=== PATIENT | male | born 1970 | race Caucasian/White ===

== ENCOUNTER 2021-10-11 11:29 | Outpatient (CLI) | payer OTHER, SELFPAY ==
[2021-10-11 11:49] LABS: Basophils Absolute Auto 0.07 K/mm3 (0.00-0.10); Basophils Percent Auto 1.2 % (0.0-1.0); Eosinophils Absolute Auto 0.33 K/mm3 (0.02-0.50); Eosinophils Percent Auto 5.5 % (1.0-6.0); Hematocrit 47.8 % (40.0-54.0); Hemoglobin 16.4 g/dL (14.0-18.0); Immature Granulocyte Absolute 0.01 K/mm3 (0.00-0.00); Immature Granulocyte Percent A 0.2 % (0.0-0.0); Lymphocytes Absolute Auto 2.16 K/mm3 (1.10-4.50); Lymphocytes Percent Auto 36.2 % (18.0-42.0); Mean Corpuscular HGB Conc 34.3 g/dL (32.0-36.0); Mean Corpuscular Hemoglobin 30.4 pg (27.0-31.0); Mean Corpuscular Volume 88.7 fL (78.0-102.0); Mean Platelet Volume 9.8 fl (8.7-11.0); Monocytes Absolute Auto 0.54 K/mm3 (0.10-0.90); Neutrophils Absolute Auto 2.9 K/mm3 (1.7-7.2); Neutrophils Percent Auto 47.9 % (50.0-70.0); Platelet Count Result 181 K/mm3 (150-420); Red Blood Count 5.39 M/mm3 (4.70-6.10); Red Cell Distribution Width 12.9 % (11.6-14.4)
[2021-10-11 12:25] LABS: Alanine Aminotransferase 69 U/L (16-63); Albumin Level 3.7 g/dL (3.4-5.0); Alkaline Phosphatase 50 U/L (46-116); Anion Gap 6 mmol/L (8-16); Aspartate Amino Transferase 38 U/L (15-37); Bilirubin,Total 0.5 mg/dL (0.00-1.00); Blood Urea Nitrogen 14 mg/dL (7-18); Calcium 8.5 mg/dL (8.5-10.1); Carbon Dioxide 27 mmol/L (21-32); Chloride 107 mmol/L (98-108); Cholesterol 171 mg/dL (0-200); Estimated Glomerular Filt Rate > 60; Glucose 109 mg/dL (70-99); HDL Direct 40 mg/dL (40-60); LDL Cholesterol Calculated 101 mg/dL (<130); Osmolality Calculated 291 mOsm/kg (285-295); Potassium 4.2 mmol/L (3.5-5.1); Prostate Specific Antigen 0.7 ng/mL (< OR = 4.0); Sodium 140 mmol/L (136-145); Thyroid Stimulating Hormone 2.15 uIU/mL (0.36-3.74); Total Protein 6.9 g/dL (6.4-8.2); Triglycerides 149 mg/dL (0-150)
[2021-10-15 10:57] LABS: Hepatitis A Antibody IgM Nonreactive; Hepatitis B Core Antibody Nonreactive (Nonreactive); Hepatitis B Surface Antigen Nonreactive (Nonreactive); Hepatitis C Signal to Cutoff 0.06 ratio (<1.00); Hepatitis C Virus Antibody Nonreactive (Nonreactive)
== END 2021-10-11 11:30 | disposition home or self-care (01) ==
LOC: CHSLAB 11:35
PROVIDERS: PCP Internal Medicine; Visit Provider Internal Medicine
DX: Z00.00 Encounter for general adult medical examination without abnormal findings (principal); R51.9 Headache, unspecified; Z12.5 Encounter for screening for malignant neoplasm of prostate; R94.5 Abnormal results of liver function studies
CPT/HCPCS: 36415; 80053; 80061; 80074; 84153; 84443; 85025; G0103

== ENCOUNTER 2021-10-12 12:54 | Outpatient (NON) | payer OTHER, SELFPAY ==
[2021-10-12 13:20] LABS: Add Urine Microscopic? YES; Appearance Urine Clear (Clear); Bilirubin Urine Negative (Negative); Blood Urine Negative (Negative); Color Urine Light Yellow (Yellow); Glucose Urine UA 1+ (Negative); Ketones Urine Negative (Negative); Leukocyte Esterase Ur Negative (Negative); Nitrate Urine Negative (Negative); Protein Urine Negative (Negative); Specific Grav Ur 1.025 (1.010-1.020)
[2021-10-12 13:24] LABS: Bacteria Urine Trace /hpf; RBC Urine 0-2 /hpf (0-2); WBC Urine 0-3 /hpf (0-3)
== END 2021-10-12 12:55 | disposition home or self-care (01) ==
LOC: CHSLAB 13:02
PROVIDERS: Visit Provider Internal Medicine
DX: Z00.00 Encounter for general adult medical examination without abnormal findings (principal); R51.9 Headache, unspecified
CPT/HCPCS: 81001

== ENCOUNTER 2021-10-16 23:32 | Emergency (ER) | payer OTHER, SELFPAY ==
--- NOTE | ~2021-10-16 | XR_ITS ---
EXAMINATION: XR hand LT min 3V INDICATION: Left hand pain, initial encounter TECHNIQUE: Three views of the left hand are obtained. COMPARISON: None available FINDINGS: Bone alignment is normal. There is no fracture. There is a 3 mm radiopaque soft tissue fore ign body dorsal to the distal neck of the third proximal phalanx. Punctate radiopaque soft tissue for eign bodies are seen dorsal to the distal neck of the fourth metacarpal. There is a 2 mm linear radio paque foreign body projecting in the medial soft tissues adjacent to neck of the third proximal phala nx. There is soft tissue swelling of the third through fifth fingers. No fracture is identified. The joint spaces are normal. IMPRESSION: 1. Radiopaque soft tissue foreign bodies of the third through fifth fingers as detailed above. Reviewed, dictated and finalized at location A.
[2021-10-16 23:42] VITALS: BP 140/90; PULSE 80; RESP 20; TEMP 36.6; O2SAT 99
[2021-10-16] MEDS: TETANUS,DIPHTHERIA,AC PERTUSSIS ADULT 0.5 ML (ADACEL) IM (23:48)
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
[2021-10-17] VITALS: BP 140/90; PULSE 70; RESP 18; TEMP 36.6; O2SAT 97
[2021-10-17] MEDS: NEOMYCIN/POLYMYXIN/BACITRACIN OINTMENT PACKET 2 PACKET (00:06)
--- NOTE | 2021-10-17 00:10 | PC.NURSE ---
NEOSPORIN & PETROLEUM DRESSING APPLIED WITH COBAN TO 3FINGERS
== END 2021-10-17 00:10 | disposition home or self-care (01) ==
PROVIDERS: Emergency Provider Emergency Medicine; PCP Internal Medicine
DX: S61.211A Laceration without foreign body of left index finger without damage to nail, initial encounter (principal); S61.213A Laceration without foreign body of left middle finger without damage to nail, initial encounter; S61.215A Laceration without foreign body of left ring finger without damage to nail, initial encounter; V89.2XXA Person injured in unspecified motor-vehicle accident, traffic, initial encounter
CPT/HCPCS: 73130; 90471; 90715; 99283

== ENCOUNTER 2021-12-12 16:50 | Emergency (ER) | payer OTHER, SELFPAY ==
[2021-12-12 17:00] VITALS: BP 116/80; PULSE 82; RESP 16; TEMP 36.6; O2SAT 98
[2021-12-12] MEDS: KETOROLAC (*BKC) 60 MG/2 ML VIAL IM (17:28)
[2021-12-12] MEDS: ORPHENADRINE CITRATE 100 MG TABLET.ER PO (17:28)
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
[2021-12-12 18:15] VITALS: BP 130/75; PULSE 58; RESP 16; TEMP 36.2; O2SAT 96
== END 2021-12-12 18:15 | disposition home or self-care (01) ==
PROVIDERS: Emergency Provider Emergency Medicine
DX: S39.012A Strain of muscle, fascia and tendon of lower back, initial encounter (principal); X50.9XXA Other and unspecified overexertion or strenuous movements or postures, initial encounter
CPT/HCPCS: 96372; 99283; A9270; J1885

== ENCOUNTER 2022-05-24 10:39 | Outpatient (CLI) | payer OTHER, SELFPAY ==
[2022-05-24 11:04] LABS: Hemoglobin A1C 5.6 % (<5.7)
[2022-05-24 11:28] LABS: Alanine Aminotransferase 38 U/L (16-63); Albumin Level 3.9 g/dL (3.4-5.0); Alkaline Phosphatase 48 U/L (46-116); Anion Gap 9 mmol/L (8-16); Aspartate Amino Transferase 26 U/L (15-37); Bilirubin,Total 1.1 mg/dL (0.00-1.00); Blood Urea Nitrogen 16 mg/dL (7-18); Carbon Dioxide 27 mmol/L (21-32); Chloride 104 mmol/L (98-108); Cholesterol 176 mg/dL (0-200); Estimated Glomerular Filt Rate 55; Glucose 101 mg/dL (70-99); HDL Direct 47 mg/dL (40-60); LDL Cholesterol Calculated 100 mg/dL (<130); Osmolality Calculated 291 mOsm/kg (285-295); Potassium 4.2 mmol/L (3.5-5.1); Sodium 140 mmol/L (136-145); Total Protein 6.8 g/dL (6.4-8.2); Triglycerides 145 mg/dL (0-150)
== END 2022-05-24 10:40 | disposition home or self-care (01) ==
PROVIDERS: PCP Internal Medicine; Visit Provider Internal Medicine
DX: Z00.00 Encounter for general adult medical examination without abnormal findings (principal)
CPT/HCPCS: 36415; 80053; 80061; 83036

== ENCOUNTER 2022-06-14 12:02 | Outpatient (CLI) | payer OTHER, SELFPAY ==
[2022-06-14 12:18] LABS: Basophils Absolute Auto 0.05 K/mm3 (0.00-0.10); Basophils Percent Auto 0.8 % (0.0-1.0); Eosinophils Absolute Auto 0.19 K/mm3 (0.02-0.50); Eosinophils Percent Auto 3.1 % (1.0-6.0); Hematocrit 46.6 % (40.0-54.0); Hemoglobin 15.7 g/dL (14.0-18.0); Immature Granulocyte Absolute 0.02 K/mm3 (0.00-0.00); Immature Granulocyte Percent A 0.3 % (0.0-0.0); Lymphocytes Absolute Auto 1.77 K/mm3 (1.10-4.50); Lymphocytes Percent Auto 29.3 % (18.0-42.0); Mean Corpuscular HGB Conc 33.7 g/dL (32.0-36.0); Mean Corpuscular Hemoglobin 29.8 pg (27.0-31.0); Mean Corpuscular Volume 88.4 fL (78.0-102.0); Mean Platelet Volume 9.7 fl (8.7-11.0); Monocytes Absolute Auto 0.47 K/mm3 (0.10-0.90); Monocytes Percent Auto 7.8 % (2.0-11.0); Neutrophils Absolute Auto 3.5 K/mm3 (1.7-7.2); Neutrophils Percent Auto 58.7 % (50.0-70.0); Platelet Count Result 179 K/mm3 (150-420); Red Blood Count 5.27 M/mm3 (4.70-6.10); Red Cell Distribution Width 12.5 % (11.6-14.4)
[2022-06-14 12:19] LABS: Appearance Urine Clear (Clear); Bilirubin Urine Negative (Negative); Blood Urine Negative (Negative); Color Urine Light Yellow (Yellow); Glucose Urine UA Negative (Negative); Ketones Urine Negative (Negative); Leukocyte Esterase Ur Negative (Negative); Nitrate Urine Negative (Negative); Protein Urine Negative (Negative); Specific Grav Ur 1.015 (1.010-1.020); Urobilinogen Urine 0.2 mg/dL (0.2-1.0); pH Urine 6.5 (5.0-8.0)
[2022-06-14 12:29] LABS: Add Urine Microscopic? NO
[2022-06-14 12:55] LABS: Alanine Aminotransferase 35 U/L (16-63); Albumin Level 3.7 g/dL (3.4-5.0); Alkaline Phosphatase 44 U/L (46-116); Anion Gap 6 mmol/L (8-16); Aspartate Amino Transferase 30 U/L (15-37); Bilirubin,Total 0.8 mg/dL (0.00-1.00); Blood Urea Nitrogen 17 mg/dL (7-18); Calcium 8.7 mg/dL (8.5-10.1); Carbon Dioxide 27 mmol/L (21-32); Chloride 105 mmol/L (98-108); Estimated Glomerular Filt Rate > 60; Glucose 103 mg/dL (70-99); Osmolality Calculated 287 mOsm/kg (285-295); Potassium 4.2 mmol/L (3.5-5.1); Sodium 138 mmol/L (136-145); Total Protein 6.5 g/dL (6.4-8.2)
== END 2022-06-14 12:03 | disposition home or self-care (01) ==
LOC: CHSLAB 12:05
PROVIDERS: PCP Internal Medicine; Visit Provider Internal Medicine
DX: R94.4 Abnormal results of kidney function studies (principal)
CPT/HCPCS: 36415; 80053; 81003; 85025

== ENCOUNTER 2022-08-23 09:41 | Emergency (ER) | payer OTHER, SELFPAY ==
[2022-08-23 09:41] VITALS: BP 161/88; PULSE 72; RESP 18; TEMP 36.5; O2SAT 98
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
[2022-08-23 10:49] VITALS: BP 125/61; PULSE 68; RESP 16; TEMP 36.6; O2SAT 100
== END 2022-08-23 10:50 | disposition home or self-care (01) ==
LOC: CHSED 10:28
PROVIDERS: Emergency Provider Internal Medicine Critical Care Medicine; PCP Internal Medicine
DX: M76.31 Iliotibial band syndrome, right leg (principal)
CPT/HCPCS: 99283

== ENCOUNTER 2022-08-28 10:37 | Outpatient (CLI) | payer OTHER, SELFPAY ==
--- NOTE | ~2022-08-28 | XR_ITS ---
EXAMINATION: XR lumbar spine 2-3V DATE: 08/28/2022 10:57 INDICATION: Low back pain TECHNIQUE: Anteroposterior and lateral views of the lumbar spine, and cone-down lateral view of the l umbosacral junction were obtained. COMPARISON: None. FINDINGS: Bone alignment is normal. There is no fracture. There is moderate loss of intervertebral di sc space height at L5-S1 and mild loss of disc space height at L4-5. Small degenerative osteophytes p roject from the anterior endplates of multiple vertebral bodies. There is mild to moderate facet join t osteoarthritis of the lower lumbar spine. IMPRESSION: 1. Mild to moderate lower lumbar spondylosis without acute findings. Reviewed, dictated and finalized at location B.
== END 2022-08-28 10:38 | disposition home or self-care (01) ==
LOC: CHSIMG 10:41
PROVIDERS: PCP Internal Medicine; Visit Provider Internal Medicine
DX: M54.50 Low back pain, unspecified (principal); M47.26 Other spondylosis with radiculopathy, lumbar region
CPT/HCPCS: 72100

== ENCOUNTER 2022-09-08 11:24 | Outpatient (CLI) | payer OTHER, SELFPAY ==
--- NOTE | ~2022-09-08 | XR_ITS ---
XR femur RT min 2V DATE: 09/08/2022 11:45 INDICATION: Right leg pain for 3 weeks. No known injury. TECHNIQUE: AP and lateral views of right femur COMPARISON: None FINDINGS: No fracture or dislocation, periosteal reaction or bone destruction. Normal alignment at th e right hip and knee joints. IMPRESSION: Negative Reviewed, dictated and finalized at location B. IMPRESSION: Negative
--- NOTE | ~2022-09-08 | XR_ITS ---
XR knee RT 3V DATE: 09/08/2022 11:45 INDICATION: Right leg pain for 3 weeks. No known injury. TECHNIQUE: AP, lateral, sunrise views COMPARISON: None FINDINGS: There is mild loss of height at the medial compartment joint space. No fracture or dislocat ion or joint effusion. No periosteal reaction or bone destruction. No radiopaque intra-articular loos e body or chondrocalcinosis. IMPRESSION: Mild loss of height of medial compartment joint space; otherwise negative Reviewed, dictated and finalized at location B. IMPRESSION: Mild loss of height of medial compartment joint space; otherwise ne gative
--- NOTE | ~2022-09-08 | XR_ITS ---
XR hip RT min 2V DATE: 09/08/2022 11:45 INDICATION: Right leg pain for 3 weeks. No known injury. TECHNIQUE: AP and lateral views COMPARISON: None FINDINGS: No fracture or dislocation, avascular necrosis or bone destruction. Right hip joint space i s well preserved. The pubic symphysis and sacroiliac joints are intact. Levoscoliosis of the lumbar spine. Degenerative disc disease at L5-S1. IMPRESSION: No significant abnormality of right hip Reviewed, dictated and finalized at location B.
== END 2022-09-08 11:25 | disposition home or self-care (01) ==
LOC: CHSIMG 11:25
PROVIDERS: PCP Internal Medicine; Visit Provider Internal Medicine
DX: M79.604 Pain in right leg (principal)
CPT/HCPCS: 73502; 73552; 73562

== ENCOUNTER 2022-09-28 06:48 | Outpatient (CLI) | payer OTHER, SELFPAY ==
--- NOTE | ~2022-09-28 | MR_ITS ---
EXAMINATION: MR lumbar spine wo con DATE: 09/28/2022 07:36 INDICATION: Right-sided back pain and radiculopathy TECHNIQUE: Magnetic resonance imaging (MRI) of the lumbar spine was performed without intravenous con trast. Sequences included sagittal T2-weighted FSE, sagittal T2-weighted FS FSE, sagittal T1-weighted FSE, and axial T2-weighted FSE. COMPARISON: Lumbar spine radiographs dated 08/28/2022 FINDINGS: 11 degree lumbar levoscoliosis. Sagittal alignment is normal. Vertebral body heights are normal. Smal l Schmorl's nodes along the inferior endplate of T12 and endplates on either side of the T11-T12 disc space. T1 and T2 hyperintense hemangioma at T12. Bone marrow signal is otherwise normal. Mild disc h eight loss at T11-T12, L2-L3 and L3-L4 and mild to moderate disc height loss at L4-L5 and L5-S1. The conus medullaris terminates at L1. There is normal signal in the caudal spinal cord. Paravertebral so ft tissues are unremarkable. The following disc levels are specifically discussed: T12-L1: The disc does not extend beyond the endplate margin. There is no facet joint osteoarthritis. There is no neural foraminal stenosis. There is no central canal stenosis. L1-L2: Disc is moderately bulging with superimposed annular fissure and small central disc extrusion with disc material extending 2 mm caudal to the level of the superior endplate of L2. There is mild b ilateral facet joint osteoarthritis. There is mild bilateral neural foraminal stenosis. There is mild central canal stenosis. L2-L3: Bilateral small foraminal zone disc protrusions with additional annular fissure and right para central disc extrusion with disc material extending 2 mm caudal to the level of the superior endplate of L3. There is mild bilateral facet joint osteoarthritis. There is mild bilateral neural foraminal stenosis. There is mild central canal stenosis along with narrowing of the lateral recesses, right gr eater than left. L3-L4: Moderate diffuse disc bulge with superimposed annular fissure and small left paracentral disc extrusion with disc material extending couple millimeter caudal to the level of the superior endplate of L4. There is mild left and mild to moderate right facet joint osteoarthritis. There is mild to mo derate bilateral neural foraminal stenosis. There is mild central canal stenosis and narrowing of the lateral recesses. L4-L5: Disc is bulging with annular fissure. Small posterior endplate osteophytes. There is mild bila teral facet joint osteoarthritis. There is moderate left and mild to moderate right neural foraminal stenosis. There is mild central canal stenosis and narrowing of the lateral recesses. L5-S1: Disc is bulging with annular fissure. Small posterior endplate osteophytes. There is mild righ t and mild to moderate left facet joint osteoarthritis. There is mild right and moderate left neural foraminal stenosis. There is mild central canal stenosis. IMPRESSION: 1. Mild to moderate lumbar spondylosis. Reviewed, dictated and finalized at location L.
== END 2022-09-28 06:49 | disposition home or self-care (01) ==
LOC: CHSIMG 06:52
PROVIDERS: PCP Internal Medicine; Visit Provider Internal Medicine
DX: M54.50 Low back pain, unspecified (principal); M79.604 Pain in right leg; M43.06 Spondylolysis, lumbar region
CPT/HCPCS: 72148

== ENCOUNTER 2022-10-10 08:42 | Outpatient (RCR) | payer OTHER, SELFPAY ==
--- NOTE | 2022-10-10 09:51 | PTOPEVAL1 ---
Assessment and note entered by Savannah Valadez DPT Evaluation Information Assessment Status Evaluation Diagnosis low back pain, R leg pain Onset 08/18/22 Subjective Information Patient reports he had R thigh cramping on August 18 while standing in the grocery store. He reports since then leg pain has decreased but low back pain has increased. He reports pain radiates down the R leg and will get tingling in the R salmon . 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 Patient reports that pain increases with standing for long periods of time, sitting for long periods of time and he reports he has not tried to lift much since. MRI shows moderate lumar spondylosis. Reported Pain Level Pain Score 3,2: Self Report Assessment PT Clinical Summary Patient is a 52 year old male who presents to PT with low back pain and radiating pain to R LE. Patient demonstrates decreased R LE strength, decreased R hamstring length and pain with lumbar ROM limiting his ability to stand for prolonged periods to complete house hold tasks, sit for prolonged periods and lfit objects at home. He would benefit from skilled PT to address impairments and return to PLOF. Plan of Care Interventions Electrical Stimulation,Gait Training,Hot Pack/Cold Pack,Manual Therapy,Mechanical Traction,Neuro Re- education,Patient/Caregiver Educati,Therapeutic Activities,Therapeutic Exercise PT Services Indicated Yes Treatment Frequency and 3x weekly for 12 weeks Duration These treatments will address the objective and functional deficits as defined above. The patient will be advanced safely and appropriately in order for the patient to progress towards his/her prior level of function. Additional exercises will be introduced and as well as a comprehensive home exercise program upon discharge, if needed, ?to ensure carryover of functional gains achieved in the clinic. This treatment plan has been reviewed and agreement upon by the patient.
--- NOTE | 2022-10-10 09:52 | PTOPEVAL1 ---
Assessment and note entered by Savannah Valadez DPT Evaluation Information Assessment Status Evaluation Diagnosis low back pain, R leg pain Onset 08/18/22 Subjective Information Patient reports he had R thigh cramping on August 18 while standing in the grocery store. He reports since then leg pain has decreased but low back pain has increased. He reports pain radiates down the R leg and will get tingling in the R salmon . He reports he works in [employer] and has to lift up to 80# at work. Patient reports that pain increases with standing for long periods of time, sitting for long periods of time and he reports he has not tried to lift much since. MRI shows moderate lumar spondylosis. Reported Pain Level Pain Score 3,2: Self Report Assessment PT Clinical Summary Patient is a 52 year old male who presents to PT with low back pain and radiating pain to R LE. Patient demonstrates decreased R LE strength, decreased R hamstring length and pain with lumbar ROM limiting his ability to stand for prolonged periods to complete house hold tasks, sit for prolonged periods and lift objects at home. He would benefit from skilled PT to address impairments and return to PLOF. Plan of Care Interventions Electrical Stimulation,Gait Training,Hot Pack/Cold Pack,Manual Therapy,Mechanical Traction,Neuro Re- education,Patient/Caregiver Educati,Therapeutic Activities,Therapeutic Exercise PT Services Indicated Yes Treatment Frequency and 3x weekly for 12 weeks Duration These treatments will address the objective and functional deficits as defined above. The patient will be advanced safely and appropriately in order for the patient to progress towards his/her prior level of function. Additional exercises will be introduced and as well as a comprehensive home exercise program upon discharge, if needed, ?to ensure carryover of functional gains achieved in the clinic. This treatment plan has been reviewed and agreement upon by the patient.
--- NOTE | 2022-10-10 09:52 | OPREHPOC ---
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 Patient to score 20% improvement in Back Index 2. Patient to report ability to stand for >30 mintues with no radiating pain to R LE
--- NOTE | 2022-10-10 09:53 | OPREHPOC ---
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 Patient to score 20% improvement in Back Index 2. Patient to report ability to stand for >30 mintues with no radiating pain to R LE Target Visit 12
--- NOTE | 2022-11-01 11:46 | OPREHPOC ---
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 Patient to score 20% improvement in Back Index 2. Patient to report ability to stand for >30 mintues with no radiating pain to R LE Target Visit 12 Comment progressing towards
--- NOTE | 2022-11-01 11:47 | PTOPPROGNS ---
Assessment and note entered by JT File, PT Evaluation Information Assessment Status Progress Diagnosis low back pain, R leg pain Onset 08/18/22 Subjective Information patient reports he is better overall. he reports no symptoms in the R LE any longer, and lower pain overall in the lower back. he reports he has not yet returned to work. he reports he is compliant with his HEP at home. Assessment PT Clinical Summary mr. sun presents to skilled PT for his 10th skilled therapy visit today. he has made progress towards goals thus far noting decreased pain, independence with HEP, improvement of R hip strength, and reduction of R LE symptoms. he was educated today in exercises to improve his trunk and core stability and LE flexibility. he continues to have LE weakness, pain in the lower back, mm tightness, and has yet to return to prior level functional activities. he would benefit from continued skilled PT to address his remaining deficits to return to full prior level functional activity participation/performance. Plan of Care Interventions Electrical Stimulation,Gait Training,Hot Pack/Cold Pack,Manual Therapy,Mechanical Traction,Neuro Re- education,Patient/Caregiver Educati,Therapeutic Activities,Therapeutic Exercise PT Services Indicated Yes Treatment Frequency and continue skilled PT for 2 visits remaining on Duration initial POC These treatments will address the objective and functional deficits as defined above. The patient will be advanced safely and appropriately in order for the patient to progress towards his/her prior level of function. Additional exercises will be introduced and as well as a comprehensive home exercise program upon discharge, if needed, ?to ensure carryover of functional gains achieved in the clinic. This treatment plan has been reviewed and agreement upon by the patient.
--- NOTE | 2022-11-07 11:40 | OPREHPOC ---
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 Patient to score 20% improvement in Back Index 2. Patient to report ability to stand for >30 mintues with no radiating pain to R LE 3. Patient to demonstrate ability to box lift 50# with no increase in pain Target Visit 18 Comment progressing towards
--- NOTE | 2022-11-07 11:41 | PTOPREEVAL ---
Assessment and note entered by Savannah Valadez DPT Evaluation Information Assessment Status Re-evaluation Diagnosis low back pain, R leg pain Onset 08/18/22 Subjective Information Patient reports that salmon pain has resolved and thigh pain is very rare. He reports back pain is still there but it has also improved. He reports getting up out of chair and getting into bed have improved. he reports he has not attempted lifting anything over 20#. He thinks he would benefit from continued PT Reported Pain Level Pain Score 0,3: Self Report Assessment PT Clinical Summary Patient has attended 12 visits of skilled PT from 10/10/22-11/07/22 with great progress towards goals. Patient demonstrates 5/5 LE strength and independence with HEP but continues to have pain with lumbar ROM. Patient reports that radiating pain has mostly resolved but back pain is still presents. He has improved ability to stand up from chairs and get into bed but has difficulty with lifting activities. Patient would benefit from continued skilled PT to address remaining impairments and return to PLOF. Plan of Care Interventions Electrical Stimulation,Gait Training,Hot Pack/Cold Pack,Manual Therapy,Mechanical Traction,Neuro Re- education,Patient/Caregiver Educati,Therapeutic Activities,Therapeutic Exercise PT Services Indicated Yes Treatment Frequency and continue 2x weekly for 6 visits Duration These treatments will address the objective and functional deficits as defined above. The patient will be advanced safely and appropriately in order for the patient to progress towards his/her prior level of function. Additional exercises will be introduced and as well as a comprehensive home exercise program upon discharge, if needed, ?to ensure carryover of functional gains achieved in the clinic. This treatment plan has been reviewed and agreement upon by the patient.
--- NOTE | 2022-11-28 10:57 | OPREHPOC ---
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 PT Problem 4 PT Problem #4 Impaired Strength PT Goal 1 Goal Patient to demonstrate 5/5 strength of R LE to improve ability to stand for periods required to complete house hold tasks Target Visit 12 Progress Met Comment . PT Problem 5 PT Problem #5 Impaired Functional Mobil PT Goal 1 Goal 1. Patient to score 20% improvement in Back Index 2. Patient to report ability to stand for >30 mintues with no radiating pain to R LE 3. Patient to demonstrate ability to box lift 50# with no increase in pain Target Visit 18 Progress Met Comment .
--- NOTE | 2022-11-28 10:57 | PTOPDC ---
Assessment and note entered by Savannah Valadez DPT Evaluation Information Assessment Status Re-evaluation Diagnosis low back pain, R leg pain Onset 08/18/22 Subjective Information Patient reports he is feeling 95% better. He reports he still has some days where he can feel pain but only at a 1/10. He reports he believes he could return to work depending on the task for that day. Reported Pain Level Pain Score 0,1: Self Report Assessment PT Clinical Summary Mr. Sotomayor has been seen for 18 visits of skilled PT and has met all goals. Patient reports he is 95% improved and believes he is ready to return to work at this time. Patient has been able to tolerate lifting and carrying activities during PT session with no reports of pain. Patient is independent with HEP and is appropriate for DC at this time. Plan of Care PT Services Indicated No
== END 2022-11-28 15:21 | disposition home or self-care (01) ==
LOC: CHSPT 08:42
PROVIDERS: PCP Internal Medicine; Visit Provider Internal Medicine
DX: M51.16 Intervertebral disc disorders with radiculopathy, lumbar region (principal)
CPT/HCPCS: 97012; 97014; 97110; 97112; 97161; 97530; G0283

== ENCOUNTER 2024-05-20 08:50 | Emergency (ER) | payer OTHER, SELFPAY ==
--- NOTE | ~2024-05-20 | XR_ITS ---
XR lumbar spine 2-3V 05/20/2024 09:03 Indication: Low back pain Procedure: 3 views lumbar spine Comparison: 08/28/2022 Findings: There is disc narrowing at L2-3 through L5-S1. There is multilevel facet hypertrophy from L 3-4 through L5-S1. Pedicles intact. There is levoscoliosis centered at L3. Sacral foramen are symmetr ic. Impression: 1: Moderate lumbar spondylosis with levoscoliosis. Reviewed, dictated and finalized at location A. Impression: 1: Moderate lumbar spondylosis with levoscoliosis.
[2024-05-20 08:50] VITALS: BP 144/98; PULSE 73; RESP 18; TEMP 36.7; O2SAT 98
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
--- OUTSIDE RECORDS SUMMARY | 2024-05-20 09:09 | XMS_ITS | Encounter Summary ---
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
--- OUTSIDE RECORDS SUMMARY | 2024-05-20 09:09 | XMS_ITS | Clinical Summary ---
Author Organization [facility] Address [facility] [place] [address] Care Team Providers Care Rn Urology Name Role Phone None, Provider MD Primary Care Provider Unavaila ble Allergies Active Allergy Reactions Criticality Noted Date Comments Penicillins Other (see comment) 07/15/2020 Had a reaction as a baby. His mom says it almost killed him. Medications No known medications Social History Tobacco Use Types Packs/Day Years Used Date Smoking Tobacco: Former Smokeless Tobacco: Never Alcohol Use Standard Drinks/Week Comments Not Currently 0 (1 standard drink = 0.6 oz pur e alcohol) AUDIT-C Answer Date Recorded Q1: How often do you have a drink containing alc ohol? 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 Gender Identity Not on file Sexual Orientation Not on file Last Filed Vital Signs Vital Sign Reading Time Taken Comments Blood Pressure 140/88 05/04/2021 11:35 AM CDT Pulse 65 05/04/2021 11:35 AM CDT Temperature 36.4 C (97.6 F) 05/04/2021 11:35 AM CDT Respiratory Rate 18 05/04/2021 11:35 AM CDT Oxygen Saturation 96% 05/04/2021 11:35 AM CDT Inhaled Oxygen Concentration - - Weight 94.3 kg (208 lb) 05/04/2021 11:35 AM CDT Height 177.8 cm (5' 10 ) 05/04/2021 11:35 AM CDT Body Mass Index 29.84 05/04/2021 11:35 AM CDT Plan of Treatment Health Maintenance Due Date Last Done Comments Colorectal Cancer Screening Colonoscopy (10 Years) 1971 Annual Physical 09/07/1974 Hepatitis C 09/07/1989 DTaP, Tdap and Td Vaccines ( 1 - Tdap) 09/07/1990 Hepatitis B Vaccines (1 of 3 - 19+ 3-dose series) 09/07/1990 Zoster Vaccines (1 of 2) 09/07/2021 COVID-19 Vaccine (1 - 2023-2 5 season) 2023 Meningococcal B Vaccine Aged Out No l onger eligible based on patient's age to complete this topic Meningococcal Vaccine Aged Out No ingrid anais eligible based on patient's age to complete this topic Pneumococcal Vaccine: Pediat rics (0 to 5 Years) and At-Risk Patients (6 to 64 Years) Aged Out No longer eligible b ased on patient's age to complete this topic RSV Immunizations Under 20 Months Aged Out No longer eligible based on patient's age to complete this topic Insurance Care Teams Rn Urology Relationship Specialty Start Date End Date None, Provider, PCP - General 07/15/20
[2024-05-20] MEDS: KETOROLAC (*BKC) 60 MG/2 ML VIAL IM (09:30)
--- NOTE | 2024-05-20 10:18 | PC.NURSE ---
pt reports pain has improved at this time. he is aware of plan of care.
[2024-05-20 10:22] VITALS: BP 152/99; PULSE 65; RESP 18; TEMP 36.6; O2SAT 97
--- OUTSIDE RECORDS SUMMARY | 2024-05-20 10:28 | XMS_ITS | Encounter Summary ---
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
--- OUTSIDE RECORDS SUMMARY | 2024-05-20 10:28 | XMS_ITS | Clinical Summary ---
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
== END 2024-05-20 10:22 | disposition home or self-care (01) ==
PROVIDERS: Emergency Provider Emergency Medicine; PCP Internal Medicine
DX: M54.16 Radiculopathy, lumbar region (principal)
CPT/HCPCS: 72100; 96372; 99283; J1885

== ENCOUNTER 2024-06-21 10:18 | Outpatient (CLI) | payer OTHER, SELFPAY ==
--- NOTE | ~2024-06-21 | MR_ITS ---
MRI of the lumbar spine Clinical History: Back pain Technique: Axial T2-weighted images, and sagittal T1-weighted, T2-weighted, and T2 fat-sat images wer e acquired. COMPARISON: 09/28/2022 Findings: No fracture and 5. There is minimal grade 1 retrolisthesis of L2 over L3. No suspicious bon e marrow signal abnormality seen. At L1-L2, there is mild facet hypertrophy. No spinal canal stenosis or neuroforaminal narrowing. L2-L3, there is minimal disc bulge with mild facet arthropathy. No central canal stenosis or neural f oraminal narrowing. L3-L4, there is mild degenerative disc narrowing. There is no disc bulge or herniation. There is mode rate facet arthropathy. No central canal stenosis. There is bilateral neural foraminal narrowing. L4-L5, there is disc bulge and severe facet arthropathy. There is mild central canal stenosis. There is moderate left neural foraminal narrowing, and minimal right neural foraminal narrowing. At L5-S1, there is disc bulge and moderate facet arthropathy. No central canal stenosis. There is mil d left neural foraminal narrowing. Paravertebral soft tissues are unremarkable. IMPRESSION: Mild degenerative spondylosis overall, as above. Reviewed, dictated and finalized at location .
--- OUTSIDE RECORDS SUMMARY | 2024-06-21 16:19 | XMS_ITS | Clinical Summary ---
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
--- OUTSIDE RECORDS SUMMARY | 2024-06-21 16:19 | XMS_ITS | Encounter Summary ---
Author Organization [facility] Address [facility] [place] [address] Care Team Providers Care Precision Lens Grinder Apprentice Name Role Phone None, Provider Primary Care Provider Unavaila ble Encounter Details Date Type Department Care Team (Late st Contact Info) Description 07/27/2018 Abstract SFL CONVERSION [address] [place] [address] , Generic Conversion, Social History Tobacco Use Types Packs/Day Years Used Date Smoking Tobacco: Never Assessed Sex and Gender Information Value Date Recorded Sex Assigned at Not on file 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
== END 2024-06-21 10:19 | disposition home or self-care (01) ==
PROVIDERS: PCP Internal Medicine; Visit Provider Internal Medicine
DX: M54.50 Low back pain, unspecified (principal); M54.16 Radiculopathy, lumbar region; M43.06 Spondylolysis, lumbar region
CPT/HCPCS: 72148

== ENCOUNTER 2024-07-17 09:26 | Outpatient (RCR) | payer OTHER, BC, MEDICAID, SELFPAY ==
--- NOTE | 2024-07-17 13:18 | OPREHPOC ---
Outpatient Therapy Plan of Care This is a Multidisciplinary Plan of Care that may contain components documented by all disciplines (PT, OT, and ST.) PT Problem 1 PT Problem #1 Knowledge Deficit PT Goal 1 Goal / Goal Update Pt to be independent in HEP Target Visit 4 PT Problem 2 PT Problem #2 Impaired Functional Mobility PT Goal 1 Goal / Goal Update Pt to report that he is able to sit for at least an hour with no pain pt to be able to walk at least 1200 ft on 6MWT with reports of no more than a 2/10 pain. pt to report that he can drive with pain no more than 2/10. pt to be able to safely lift 30# from floor to waist with no more than a 2/10 pain Target Visit 12 PT Problem 3 PT Problem #3 Impaired Strength PT Goal 1 Goal / Goal Update Abdominal strength to be at least 4+/5 R hip flex to be at least a 4+/5 Target Visit 12 PT Problem 4 PT Problem #4 Impaired Range of Motion PT Goal 1 Goal / Goal Update pt to have at least 20 degrees of Lumbar extension Target Visit 12
--- NOTE | 2024-07-17 13:18 | PTOPEVAL1 ---
Assessment and note entered by Bronson Hess SPT Evaluation Information Assessment Status Evaluation ICD-10 Condition Codes (PT) Pain in low back M54.50,Radiculopathy, lumbar region M54.16 Onset 05/18/24 Subjective Information Pt reports that he has multiple bulging disc (L1- L5) that he got imagining of on 06/21/24. Pt reports that he has been dealing with low back pain and disc issues since 2022. 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 Pt reports that he has trouble walking, sitting longer than 10 min, and driving without an increase in pain. Pt reports that ice and his meds is the only thing that is helping. Pt reports that the low back and the R thigh hurt the most, but his whole front R LE into his toes is tingling. Reported Pain Level Pain Score 7: Self Report Assessment PT Clinical Summary Mr. Sotomayor presents to skilled PT with a diagnosis of DJD and chronic low back pain. Pt signs and symptoms are consistent with a disc bulge. Pt has deficits in ROM, strength, sensation , posture, and gait. Pt reports a high disability score on the Oswestry indicating decreased function and quality of life. Skilled PT is needed for the return of prior level of function, increase quality of life, and work on deficits to work towards the pts goals. Pt was educated and given a HEP. Plan of Care Interventions Electrical Stimulation,Hot Pack/Cold Pack, Therapeutic Exercise PT Services Indicated Yes Treatment Frequency and 3x a week for 12 visits Duration These treatments will address the objective and functional deficits as defined above. The patient will be advanced safely and appropriately in order for the patient to progress towards his/her prior level of function. Additional exercises will be introduced and as well as a comprehensive home exercise program upon discharge, if needed, ?to ensure carryover of functional gains achieved in the clinic. This treatment plan has been reviewed and agreement upon by the patient.
--- NOTE | 2024-08-05 13:04 | PCPTNOTE ---
On 08/05/24, the student, [Bronson Hess], provided care and completed [facility] documentation on this patient. I have reviewed the student's documentation and agree with the findings.
--- NOTE | 2024-08-08 14:05 | OPREHPOC ---
Outpatient Therapy Plan of Care This is a Multidisciplinary Plan of Care that may contain components documented by all disciplines (PT, OT, and ST.) PT Problem 1 PT Problem #1 Knowledge Deficit PT Goal 1 Goal / Goal Update Pt to be independent in HEP Target Visit 4 Progress Met PT Problem 2 PT Problem #2 Impaired Functional Mobility PT Goal 1 Goal / Goal Update Pt to report that he is able to sit for at least an hour with no pain -met pt to be able to walk at least 1200 ft on 6MWT with reports of no more than a 2/10 pain. -not met pt to report that he can drive with pain no more than 2/10. - met pt to be able to safely lift 30# from floor to waist with no more than a 2/10 pain -not met Target Visit 12 Progress Partially Met PT Problem 3 PT Problem #3 Impaired Strength PT Goal 1 Goal / Goal Update Abdominal strength to be at least 4+/5 - not met R hip flex to be at least a 4+/5 - met Target Visit 12 Progress Partially Met PT Problem 4 PT Problem #4 Impaired Range of Motion PT Goal 1 Goal / Goal Update pt to have at least 20 degrees of Lumbar extension Target Visit 12 Progress Not Met
--- NOTE | 2024-08-08 14:05 | PCPTNOTE ---
On 08/08/24, the student, [Bronson Hess], provided care and completed [facility] documentation on this patient. I have reviewed the student's documentation and agree with the findings.
--- NOTE | 2024-08-08 14:06 | BUPTOPEVAL1 ---
Assessment and note entered by JT File, PT Evaluation Information Assessment Status Progress Assessment Status Evaluation ICD-10 Condition Codes (PT) Pain in low back M54.50,Radiculopathy, lumbar region M54.16 ICD-10 Condition Codes (PT) Pain in low back M54.50,Radiculopathy, lumbar region M54.16 Onset 05/18/24 Onset 05/18/24 Subjective Information Pt reports that his pain has gotten better. Pt reports that he still has numbness and tingling that goes down his legs. Pt reports that he has been doing his exercises at home. Pt reports that he does not see his doctor until 08/15/24. Pt reports that he is able to sit and drive for an hour without pain. Pt reports that he is still not working. Subjective Information Pt reports that he has multiple bulging disc (L1- L5) that he got imagining of on 06/21/24. Pt reports that he has been dealing with low back pain and disc issues since 2022. 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 Pt reports that he has trouble walking, sitting longer than 10 min, and driving without an increase in pain. Pt reports that ice and his meds is the only thing that is helping. Pt reports that the low back and the R thigh hurt the most, but his whole front R LE into his toes is tingling. Reported Pain Level Pain Score 2: Self Report Pain Score 2: Self Report Pain Score 4: Self Report Pain Score 5: Self Report Pain Score 5: Self Report Pain Score 6: Self Report Pain Score 6: Self Report Pain Score 6: Self Report Pain Score 6: Self Report Pain Score 7: Self Report Assessment PT Clinical Summary completed his 10th skilled PT visit for Lumbar pain and radiculopathy. Pt has improved perceived disability on Oswestry, and is able to drive and sit for an hour without pain. Pt LE strength, posture, and gait mechanics have improved. However, despite improvements the pt still has deficits in strength, ambulation, picking up objects from the floor, and reports moderate disability on the Oswestry. Continued skilled PT is needed to improve deficits, quality of life, and to improve functional mobility for returning to [facility]. PT Clinical Summary Mr. Sotomayor presents to skilled PT with a diagnosis of DJD and chronic low back pain. Pt signs and symptoms are consistent with a disc bulge. Pt has deficits in ROM, strength, sensation , posture, and gait. Pt reports a high disability score on the Oswestry indicating decreased function and quality of life. Skilled PT is needed for the return of prior level of function, increase quality of life, and work on deficits to work towards the pts goals. Pt was educated and given a HEP. Plan of Care Interventions Electrical Stimulation,Hot Pack/Cold Pack, Therapeutic Exercise Interventions Electrical Stimulation,Hot Pack/Cold Pack, Therapeutic Exercise PT Services Indicated Yes PT Services Indicated Yes PT Services Indicated Yes PT Services Indicated Yes PT Services Indicated Yes PT Services Indicated Yes PT Services Indicated Yes PT Services Indicated Yes PT Services Indicated Yes PT Services Indicated Yes Treatment Frequency and Continue POC Duration Treatment Frequency and 3x a week for 12 visits Duration These treatments will address the objective and functional deficits as defined above. The patient will be advanced safely and appropriately in order for the patient to progress towards his/her prior level of function. Additional exercises will be introduced and as well as a comprehensive home exercise program upon discharge, if needed, ?to ensure carryover of functional gains achieved in the clinic. This treatment plan has been reviewed and agreement upon by the patient.
--- NOTE | 2024-08-15 09:49 | OPREHPOC ---
Outpatient Therapy Plan of Care This is a Multidisciplinary Plan of Care that may contain components documented by all disciplines (PT, OT, and ST.) PT Problem 1 PT Problem #1 Knowledge Deficit PT Goal 1 Goal / Goal Update Pt to be independent in HEP Target Visit 4 Progress Met PT Problem 2 PT Problem #2 Impaired Functional Mobility PT Goal 1 Goal / Goal Update Pt to report that he is able to sit for at least an hour with no pain -met pt to be able to walk at least 1200 ft on 6MWT with reports of no more than a 2/10 pain. -not met pt to report that he can drive with pain no more than 2/10. -not met pt to be able to safely lift 30# from floor to waist with no more than a 2/10 pain -met Target Visit 12 Progress Partially Met PT Problem 3 PT Problem #3 Impaired Strength PT Goal 1 Goal / Goal Update Abdominal strength to be at least 4+/5 - not met R hip flex to be at least a 4+/5 - met Target Visit 12 Progress Partially Met PT Problem 4 PT Problem #4 Impaired Range of Motion PT Goal 1 Goal / Goal Update pt to have at least 20 degrees of Lumbar extension -not met Target Visit 12 Progress Not Met
--- NOTE | 2024-08-15 09:49 | PTOPPROG ---
Assessment and note entered by Lianna Acosta, PT Evaluation Information Assessment Status Discharge ICD-10 Condition Codes (PT) Pain in low back M54.50,Radiculopathy, lumbar region M54.16 Onset 05/18/24 Subjective Information Bashir reports he is seeing his primary care doctor today and will follow up with pain management on 08/25/24. He had an injection on that improved his symptoms however, improvement has not occurred further since then. He feels he has plateaued with his pain improvements. He is feeling better overall and his sitting tolerance has improved to about an hour at a time and driving has improved to 30 minutes at a time. 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 He would like to hold on formal PT until his follow up appointments. Assessment PT Clinical Summary completed his 12th skilled PT visit for Lumbar pain and radiculopathy. He is reporting overall improvements but improvements have plateaued since having an injection on 08/06/24. He is able to sit for one hour now and drive for 30 minutes before pain radiates into the LE. 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 He objectively demonstrates improved strength and ROM . He does still have increased pain with lumbar extension and he is limited to lifting 32.5# from floor to waist without pain. He attempted lifting 37.5# but it increased his pain. He also continues to have increased pain after walking of 5 minutes . He will see his PCP today and pain management doctor on 08/25/24. He is being put on hold from skilled PT until his follow up appointments. Plan of Care Interventions Electrical Stimulation,Hot Pack/Cold Pack,Patient/ Caregiver Education,Therapeutic Activities, Therapeutic Exercise PT Services Indicated No Treatment Frequency and On hold until pain management follow up on 08/25/24. Duration He will be discharged to an independent [facility] if new orders are not received. These treatments will address the objective and functional deficits as defined above. The patient will be advanced safely and appropriately in order for the patient to progress towards his/her prior level of function. Additional exercises will be introduced and as well as a comprehensive home exercise program upon discharge, if needed, ?to ensure carryover of functional gains achieved in the clinic. This treatment plan has been reviewed and agreement upon by the patient.
--- NOTE | 2024-08-15 09:49 | PTOPPROG ---
Assessment and note entered by Lianna Acosta, PT Evaluation Information Assessment Status Progress ICD-10 Condition Codes (PT) Pain in low back M54.50,Radiculopathy, lumbar region M54.16 Onset 05/18/24 Subjective Information Bashir reports he is seeing his primary care doctor today and will follow up with pain management on 08/25/24. He had an injection on that improved his symptoms however, improvement has not occurred further since then. He feels he has plateaued with his pain improvements. He is feeling better overall and his sitting tolerance has improved to about an hour at a time and driving has improved to 30 minutes at a time. 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 He would like to hold on formal PT until his follow up appointments. Assessment PT Clinical Summary completed his 12th skilled PT visit for Lumbar pain and radiculopathy. He is reporting overall improvements but improvements have plateaued since having an injection on 08/06/24. He is able to sit for one hour now and drive for 30 minutes before pain radiates into the LE. 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 He objectively demonstrates improved strength and ROM . He does still have increased pain with lumbar extension and he is limited to lifting 32.5# from floor to waist without pain. He attempted lifting 37.5# but it increased his pain. He also continues to have increased pain after walking of 5 minutes . He will see his PCP today and pain management doctor on 08/25/24. He is being put on hold from skilled PT until his follow up appointments. Plan of Care Interventions Electrical Stimulation,Hot Pack/Cold Pack,Patient/ Caregiver Education,Therapeutic Activities, Therapeutic Exercise PT Services Indicated No Treatment Frequency and On hold until pain management follow up on 08/25/24. Duration He will be discharged to an independent [facility] if new orders are not received. These treatments will address the objective and functional deficits as defined above. The patient will be advanced safely and appropriately in order for the patient to progress towards his/her prior level of function. Additional exercises will be introduced and as well as a comprehensive home exercise program upon discharge, if needed, ?to ensure carryover of functional gains achieved in the clinic. This treatment plan has been reviewed and agreement upon by the patient.
--- NOTE | 2024-08-26 17:08 | OPREHPOC ---
Outpatient Therapy Plan of Care This is a Multidisciplinary Plan of Care that may contain components documented by all disciplines (PT, OT, and ST.) PT Problem 1 PT Problem #1 Knowledge Deficit PT Goal 1 Goal / Goal Update Pt to be independent in HEP Target Visit 4 Progress Met PT Problem 2 PT Problem #2 Impaired Functional Mobility PT Goal 1 Goal / Goal Update Pt to report that he is able to sit for at least an hour with no pain -met pt to be able to walk at least 1200 ft on 6MWT with reports of no more than a 2/10 pain. -not met pt to report that he can drive with pain no more than 2/10. -met pt to be able to safely lift 30# from floor to waist with no more than a 2/10 pain -met Target Visit 12 Progress Partially Met PT Goal 2 Goal / Goal Update patient to squat and lift 30# from floor to waist x10 reps without pain patient to carry 30lbs x400ft without increased pain Target Visit 18 PT Problem 3 PT Problem #3 Impaired Strength PT Goal 1 Goal / Goal Update Abdominal strength to be at least 4+/5 - not met R hip flex to be at least a 4+/5 - met Target Visit 12 Progress Partially Met PT Problem 4 PT Problem #4 Impaired Range of Motion PT Goal 1 Goal / Goal Update pt to have at least 20 degrees of Lumbar extension Target Visit 12 Progress Met
--- NOTE | 2024-08-26 17:08 | PTOPREEVAL ---
Assessment and note entered by JT File, PT Evaluation Information Assessment Status Re-evaluation ICD-10 Condition Codes (PT) Pain in low back M54.50,Radiculopathy, lumbar region M54.16 Onset 05/18/24 Subjective Information patient reports he went to pain management and they sent him back to therapy. he reports he received an injection back in july, and is not allowed to get another for 3 more months. he reports he is pain is still increased with lifting 30lbs or more. he reports he does not have to do this often, but does have to lift this much around his home. Reported Pain Level Pain Score 2: Self Report Assessment PT Clinical Summary mr. sun returns to skilled PT after follow up with his pain management team. he continues to have pain with increased walking and lifting activities. he displays progress towards goals, but these were updated today to reflect his progress and goals moving forward. continued skilled PT is indicated to help him achieve these goals. Plan of Care Interventions Electrical Stimulation,Hot Pack/Cold Pack,Patient/ Caregiver Education,Therapeutic Activities, Therapeutic Exercise PT Services Indicated Yes Treatment Frequency and return to skilled PT 2x weekly for 6 moroe visits Duration These treatments will address the objective and functional deficits as defined above. The patient will be advanced safely and appropriately in order for the patient to progress towards his/her prior level of function. Additional exercises will be introduced and as well as a comprehensive home exercise program upon discharge, if needed, ?to ensure carryover of functional gains achieved in the clinic. This treatment plan has been reviewed and agreement upon by the patient.
--- NOTE | 2024-09-17 15:10 | OPREHPOC ---
Outpatient Therapy Plan of Care This is a Multidisciplinary Plan of Care that may contain components documented by all disciplines (PT, OT, and ST.) PT Problem 1 PT Problem #1 Knowledge Deficit PT Goal 1 Goal / Goal Update Pt to be independent in HEP Target Visit 4 Progress Met PT Problem 2 PT Problem #2 Impaired Functional Mobility PT Goal 1 Goal / Goal Update Pt to report that he is able to sit for at least an hour with no pain -met pt to be able to walk at least 1200 ft on 6MWT with reports of no more than a 2/10 pain. -not met pt to report that he can drive with pain no more than 2/10. -met pt to be able to safely lift 30# from floor to waist with no more than a 2/10 pain -met Target Visit 22 Progress Partially Met PT Goal 2 Goal / Goal Update patient to squat and lift 30# from floor to waist x10 reps without pain. progressing towards patient to carry 30lbs x400ft without increased pain Target Visit 22 Progress Partially Met PT Problem 3 PT Problem #3 Impaired Strength PT Goal 1 Goal / Goal Update Abdominal strength to be at least 4+/5 - not met R hip flex to be at least a 4+/5 - met Target Visit 22 Progress Partially Met PT Goal 2 Goal / Goal Update 5/5 R hip flex strength Target Visit 22 PT Problem 4 PT Problem #4 Impaired Range of Motion PT Goal 1 Goal / Goal Update pt to have at least 20 degrees of Lumbar extension Target Visit 12 Progress Met
--- NOTE | 2024-09-17 15:10 | PTOPREEVAL ---
Assessment and note entered by JT File, PT Evaluation Information Assessment Status Re-evaluation ICD-10 Condition Codes (PT) Pain in low back M54.50,Radiculopathy, lumbar region M54.16 Onset 05/18/24 Subjective Information patient reports he is better overall, but continues to have pain, and is worried if he stops therapy completely he will go backwards. he reports he still feels weak and like he is lacking in ability to lift. he would like to continue skilled PT. Reported Pain Level Pain Score 3: Self Report Assessment PT Clinical Summary mr. sun presents to skilled PT with stable levels of pain recently. he is also tolerating progression of exercises/activities in skilled PT. he continues to lack achievement of ambulation efficiency, R hip flex strength, and decreased lifting/carrying performance. patient would benefit from continued skilled PT reduced down to 1x a week for skilled progression of strengthening and functional exercises. he would also benefit from beginning a gym membership to prepare for transition to [facility] only. Plan of Care Interventions Electrical Stimulation,Hot Pack/Cold Pack,Patient/ Caregiver Education,Therapeutic Activities, Therapeutic Exercise PT Services Indicated Yes Treatment Frequency and 1x weekly for 4 more visits Duration These treatments will address the objective and functional deficits as defined above. The patient will be advanced safely and appropriately in order for the patient to progress towards his/her prior level of function. Additional exercises will be introduced and as well as a comprehensive home exercise program upon discharge, if needed, ?to ensure carryover of functional gains achieved in the clinic. This treatment plan has been reviewed and agreement upon by the patient.
--- NOTE | 2024-10-08 15:11 | OPREHPOC ---
Outpatient Therapy Plan of Care This is a Multidisciplinary Plan of Care that may contain components documented by all disciplines (PT, OT, and ST.) PT Problem 1 PT Problem #1 Knowledge Deficit PT Goal 1 Goal / Goal Update Pt to be independent in HEP Target Visit 4 Progress Met PT Problem 2 PT Problem #2 Impaired Functional Mobility PT Goal 1 Goal / Goal Update Pt to report that he is able to sit for at least an hour with no pain -met pt to be able to walk at least 1200 ft on 6MWT with reports of no more than a 2/10 pain. -met for distance, but pain increased pt to report that he can drive with pain no more than 2/10. -met pt to be able to safely lift 30# from floor to waist with no more than a 2/10 pain -met Target Visit 22 Progress Partially Met PT Goal 2 Goal / Goal Update patient to squat and lift 30# from floor to waist x10 reps without pain. not met patient to carry 30lbs x400ft without increased pain. not met Target Visit 22 Progress Not Met PT Problem 3 PT Problem #3 Impaired Strength PT Goal 1 Goal / Goal Update Abdominal strength to be at least 4+/5 - not met R hip flex to be at least a 4+/5 - met Target Visit 22 Progress Partially Met PT Goal 2 Goal / Goal Update 5/5 R hip flex strength Target Visit 22 PT Problem 4 PT Problem #4 Impaired Range of Motion PT Goal 1 Goal / Goal Update pt to have at least 20 degrees of Lumbar extension Target Visit 12 Progress Met
--- NOTE | 2024-10-08 15:11 | PTOPDC ---
Assessment and note entered by JT File, PT Evaluation Information Assessment Status Discharge ICD-10 Condition Codes (PT) Pain in low back M54.50,Radiculopathy, lumbar region M54.16 Onset 05/18/24 Subjective Information patient reports he is better overall, but continues to have pain, and is worried if he stops therapy completely he will go backwards. he reports he still feels weak and like he is lacking in ability to lift. he would like to continue skilled PT. he reports in general he feels About the same. he reports he is compliant with his HEP at home. he reports he has not yet scheduled a follow up with Dr. Prado, his PCP. Reported Pain Level Pain Score 2: Self Report Assessment PT Clinical Summary mr. sun presents to skilled PT services for his nd skilled PT visit. although he is functionally lifting more weight, and reports decreased pain at rest, patient continues to have pain increased with activities, especially lifting and carrying activities. he was unable to achieve his lifting, carrying, and walking goals due to the increased pain he experiences during these activities. he will DC skilled PT services today, and return to his PCP for follow up. Plan of Care PT Services Indicated Yes
== END 2024-10-08 20:00 | disposition home or self-care (01) ==
LOC: CHSPT 09:26
PROVIDERS: PCP Internal Medicine; Visit Provider Internal Medicine
DX: M54.50 Low back pain, unspecified (principal)
CPT/HCPCS: 97014; 97110; 97112; 97161; 97530; G0283